=== PATIENT | male | born 1980 | race Caucasian/White ===

== ENCOUNTER → 2016-04-09 | Outpatient (CLI) | payer OTHER ==
[~2016-04-09] MED LIST: OXYC-57 PO
== END | disposition home or self-care (01) ==
LOC: C.RDSM 13:43
PROVIDERS: ATTEND Physical Medicine & Rehabilitation Sports Medicine
DX: M25.511 Pain in right shoulder (principal)

== ENCOUNTER 2016-07-03 13:36 | Emergency (ER) | payer OTHER ==
[~2016-07-03] VITALS: Ht 180.3 cm; Wt 91.8 kg
[2016-07-03 13:43] VITALS: TEMP 36.8; Ht 180.3 cm; Wt 91.8 kg
[2016-07-03] MEDS ORDERED: DIPHTHERIA/TETANUS/PERTUSSIS 0.5 ML SYR/VIAL IM. ONE (14:00)
--- NOTE | 2016-07-03 14:24 | EMERGENCY ROOM VISIT NOTE ---
ED Visit Note First contact with patient: 13:49 CHIEF COMPLAINT: Puncture wound of the right forearm HISTORY OF PRESENT ILLNESS: This 36-year-old male presents the ER with chief complaint of a puncture wound to his right forearm. The patient states that he was removing a nail from a board when the board came around and another nail hit him in the right forearm. The patient states that the blood was squirting across the room. He was alone so he thought he should come to the emergency room. The patient's tetanus status is unknown. The patient states the bleeding has now subsided. He denies any numbness and tingling in his fingers. The patient is not on any blood thinners. The patient is left-hand dominant. REVIEW OF SYSTEMS: 6 system review was performed and was negative unless stated otherwise in history of present illness. PMH: The patient is healthy; there is no significant medical or surgical history. SOCIAL HISTORY: Patient denies tobacco use but admits to occasional alcohol use. PHYSICAL EXAM: Vital Signs: Were reviewed Reviewed Nurse's notes. GENERAL: 36- year-old white male appears in no acute distress. MENTAL Status: Alert and oriented 3. RIGHT FOREARM: There is a small puncture wound on the lateral aspect without any active bleeding. No foreign material is seen in the wound. The epidermis was lifted off the puncture site and the base of the wound inspected. No foreign material could be seen there. The area was not particularly tender or swollen. EMERGENCY DEPARTMENT COURSE: Adacel was given. The wound was copiously irrigated with normal saline. Antibiotic ointment and a bandage was applied. DIAGNOSIS: Puncture wound of the right forearm DISCHARGE INSTRUCTIONS: Observe the area closely for signs of infection such as redness, swelling, increasing pain, or drainage. If any should occur, follow -up with your family doctor. Antibiotic ointment and a bandage for 3 days. Problem List Medical Problems: (1) Fracture of scaphoid bone of left wrist Status: Resolved (2) No chronic problems Status: Chronic Current/Historical Medications No Active Prescriptions or Reported Meds Allergies Coded Allergies: POLLEN (Verified Allergy, Intermediate, REQUIRES ALLERGY "SHOTS" TO CORRECT, 07/03/16) NO KNOWN DRUG ALLERGIES (Verified Allergy, Unknown, ., 07/03/16) Adhesives (Verified Adverse Reaction, Intermediate, redness/swelling, ) had localized redness/swelling after removing bandaides from previous surgery Vital Signs Date Time Temp Pulse Resp B/P Pulse Ox O2 Delivery O2 Flow Rate FiO2 07/03/16 13:43 36.8 55 20 126/81 96 Room Air Departure Information Prescriptions No Active Prescriptions or Reported Meds Referrals No Doctor, Assigned (PCP) Patient Instructions [facility]
[2016-07-03 14:59] VITALS: BP 119/78; PULSE 54; O2SAT 99
== END 2016-07-03 15:01 | disposition home or self-care (01) ==
LOC: C.EDB 13:37 → C.EDD 15:01
DX: S51.831A Puncture wound without foreign body of right forearm, initial encounter (principal); W45.0XXA Nail entering through skin, initial encounter; Y92.89 Other specified places as the place of occurrence of the external cause